=== PATIENT | male | born 1930 | race Caucasian/White ===

== ENCOUNTER 2018-05-22 19:37 | Emergency (ER) | payer MEDICARE ==
[2018-05-22] MEDS ORDERED: Sodium Chloride 0.9% 1000 ML 1,000 ML IV STA ×2 (20:08→23:18)
--- NOTE | 2018-05-22 20:08 | ERPHSYRPT ---
- History of Present Illness Time Seen by Provider: 05/22/18 20:04 Source: patient, family Exam Limitations: no limitations Patient Subjective Stated Complaint: pt is alert and oriented. pt is ambulatory. pt has hx of spastic esophagus. pt states that he has vomited 15-20 times since this AM. pt bowel sounds present. pt lung sounds clear. no stridor noted. pt says he "choked on a pork chop" last night. pt states that when he eats or drinks it feels like it gets stuck and then 10-15 minutes later vomits. Triage Nursing Assessment: see above Physician History: The patient is a 88-year-old male with family complaining that while at a wedding last evening about 24 hours ago, he swallowed part of his cupcake and since then has not been able to swallow anything by mouth. He has tried for nearly 24 hours to drink water but regurgitates. He tried toast today was unable to eat it. He's also tried coffee. He has not urinated much today. He is not lightheaded. He is not able to swallow his saliva. He denies shortness of breath. Many years ago he was told he had a spastic esophagus. His past medical history is significant for CAD, cardiac stents, high cholesterol, peripheral neuropathy, and diabetes. Timing/Duration: yesterday, hour(s) (24), sudden Severity: moderate Modifying Factors: Improves With: nothing Associated Symptoms: vomiting Allergies/Adverse Reactions: No Known Drug Allergies Allergy (Unverified 05/03/15 08:12) Home Medications: Clopidogrel Bisulfate 75 mg [PLAVIX 75 MG Tablet] 75 mg PO DAILY 05/03/15 [History] Aspirin EC 81 mg [Ecotrin 81 mg] 81 mg PO HS 05/22/18 [History] Cilostazol 50 mg PO BID 05/22/18 [History] Gabapentin [Neurontin] 600 mg PO Q6H PRN PRN 05/22/18 [History] Glimepiride 1 mg PO DAILY 05/22/18 [History] Hydrocodone Bit/Acetaminophen [Magazine 10-325 Tablet] 1 tab PO Q6H PRN PRN [History] Pravastatin Sodium 10 mg PO HS 05/22/18 [History] Hx Tetanus, Diphtheria Vaccination/Date Given: Yes Hx Influenza Vaccination/Date Given: Yes Hx Pneumococcal Vaccination/Date Given: Yes Immunizations Up to Date: Yes - Review of Systems Constitutional: No Fever, No Chills Eyes: No Symptoms Ears, Nose, & Throat: No Symptoms Respiratory: No Cough, No Dyspnea Cardiac: No Chest Pain, No Edema, No Syncope Abdominal/Gastrointestinal: Vomiting (regurgitation) Genitourinary Symptoms: No Dysuria Musculoskeletal: No Back Pain, No Neck Pain Skin: No Rash Neurological: No Dizziness, No Focal Weakness, No Sensory Changes Psychological: No Symptoms Endocrine: No Symptoms Hematologic/Lymphatic: No Symptoms Immunological/Allergic: No Symptoms All Other Systems: Reviewed and Negative - Past Medical History Pertinent Past Medical History: Yes Neurological History: Peripheral Neuropathy ENT History: No Pertinent History Cardiac History: Congenital Heart Disease, High Cholesterol Respiratory History: No Pertinent History Endocrine Medical History: Diabetes Type II Musculoskeletal History: No Pertinent History GI Medical History: Esophageal Disorder, Hernia History: No Pertinent History Psycho-Social History: No Pertinent History Male Reproductive Disorders: No Pertinent History Other Medical History: spastic colon. - Past Surgical History Past Surgical History: Yes Neuro Surgical History: No Pertinent History Cardiac: Cardiac Catheterization, Cardiac Stent Respiratory: No Pertinent History Gastrointestinal: Cholecystectomy Genitourinary: No Pertinent History Musculoskeletal: No Pertinent History Male Surgical History: Vasectomy Other Surgical History: tonsillectomy - Social History Smoking Status: Light tobacco smoker Exposure to second hand smoke: No Drug Use: none - Nursing Vital Signs Nursing Vital Signs: Initial Vital Signs Temperature 98.6 F 05/22/18 19:38 Pulse Rate 87 05/22/18 19:38 Respiratory Rate 18 05/22/18 19:38 Blood Pressure 149/76 05/22/18 19:38 O2 Sat by Pulse Oximetry 96 05/22/18 19:38 Pain Scale Pain Intensity 0 - Physical Exam General Appearance: no apparent distress, alert Eye Exam: PERRL/EOMI, eyes nml inspection Ears, Nose, Throat Exam: normal ENT inspection, TMs normal, pharynx normal, moist mucous membranes Neck Exam: normal inspection, non-tender, supple, full range of motion Respiratory Exam: normal breath sounds, lungs clear, No respiratory distress Cardiovascular Exam: regular rate/rhythm, normal heart sounds, normal peripheral pulses Gastrointestinal/Abdomen Exam: soft, normal bowel sounds, No tenderness, No mass Rectal Exam: not done Back Exam: normal inspection, normal range of motion, No CVA tenderness, No vertebral tenderness Extremity Exam: normal inspection, normal range of motion, pelvis stable Neurologic Exam: alert, oriented x 3, cooperative, normal mood/affect, nml cerebellar function, nml station & gait, sensation nml, No motor deficits Skin Exam: normal color, warm, dry, No rash Lymphatic Exam: No adenopathy SpO2 Interpretation: normal SpO2: 96 Oxygen Delivery: Room Air Ordered Tests: Active Orders 24 hr Category Date Time Status IV Insertion STAT Care 05/22/18 20:08 Active BMP Stat Lab 05/22/18 20:10 Completed CBC W DIFF Stat Lab 05/22/18 20:10 Completed Lactic Acid Stat Lab 05/22/18 20:08 Completed Medication Summary Discontinued Medications Generic Name Dose Route Start Last Admin Trade Name Freq PRN Reason Stop Dose Admin Glucagon 1 mg 05/22/18 20:10 05/22/18 20:16 Glucagen 1 Mg IV 05/22/18 20:11 1 mg STAT ONE Administration Glucagon Confirm 05/22/18 20:14 Glucagen 1 Mg Administered 05/22/18 20:15 Dose 1 mg .ROUTE .STK-MED ONE Glucagon 1 mg 05/22/18 21:09 05/22/18 21:27 Glucagen 1 Mg IV 05/22/18 21:10 1 mg STAT ONE Administration Sodium Chloride 1,000 mls @ 999 mls/hr 05/22/18 20:08 05/22/18 20:16 Sodium Chloride 0.9% 1000 Ml IV 05/22/18 21:08 999 mls/hr .Q1H1M STA Administration Sodium Chloride Confirm 05/22/18 20:15 Sodium Chloride 0.9% 1000 Ml Administered 05/22/18 20:16 Dose 1,000 mls @ ud .ROUTE .STK-MED ONE Lab/Rad Data: Laboratory Result Diagrams 05/22/18 20:10 05/22/18 20:10 Laboratory Results 05/22/18 05/22/18 05/22/18 Range/Units 20:10 20:10 20:08 WBC 11.1 H (4.0-10.5) K/mm3 RBC 5.23 (4.1-5.6) M/mm3 Hgb 17.2 (12.5-18.0) gm/dl Hct 50.6 H (42-50) % MCV 96.7 (78-100) fl MCH 32.9 H (26-32) pg MCHC 34.0 (32-36) g/dl RDW 14.1 H (11.5-14.0) % Plt Count 159 (150-450) K/mm3 MPV 11.9 H (6-9.5) fl Gran % 83.5 H (36.0-66.0) % Eos # (Auto) 0.01 (0-0.5) Absolute Lymphs (auto) 0.96 L (1.0-4.6) Absolute Monos (auto) 0.86 (0.0-1.3) Lymphocytes % 8.6 L (24.0-44.0) % Monocytes % 7.7 (0.0-12.0) % Eosinophils % 0.1 (0.00-5.0) % Basophils % 0.1 (0.0-0.4) % Absolute Granulocytes 9.29 H (1.4-6.9) Basophils # 0.01 (0-0.4) Sodium 145 (137-145) mmol/L Potassium 3.6 (3.5-5.1) mmol/L Chloride 107 (98-107) mmol/L Carbon Dioxide 26 (22-30) mmol/L Anion Gap 15.1 H (5-15) MEQ/L BUN 20 (9-20) mg/dL Creatinine 0.87 (0.66-1.25) mg/dL Estimated GFR > 60.0 ML/MIN Glucose 112 H (74-106) mg/dL Lactic Acid 1.2 (0.4-2.0) Calcium 9.9 (8.4-10.2) mg/dL - Progress Progress: unchanged Progress Note: 05/22/18 21:10 After glucagon 1 mg IV, pt is not able to pass water orally. 05/22/18 22:47 After second glucagon 1 mg IV, pt still not able to pass water orally. - Departure Time of Disposition: 22:58 Departure Disposition: Transfer (Transfer to [facility] per Dr Dahl) Clinical Impression: Esophageal obstruction due to food impaction Condition: Stable Critical Care Time: No Referrals: ALEC REINA MD [Primary Care Provider] -
[2018-05-22] MEDS ORDERED: GlucaGen 1 MG IV ONE ×2 (20:10→21:09)
[2018-05-22] MEDS ORDERED: GlucaGen 1 MG ONE (20:14)
[2018-05-22] MEDS ORDERED: Sodium Chloride 0.9% 1000 ML 1,000 ML ONE ×2 (20:15→23:14)
[2018-05-22 20:20] LABS: BASOPHIL % 0.1 % (0.0-0.4); Basophil (Absolute #) 0.01 (0-0.4); Eosinophil % 0.1 % (0.00-5.0); Eosinophil (Absolute #) 0.01 (0-0.5); Granulocyte Absolute (ANC) 9.29 (1.4-6.9); Granulocytes % 83.5 % (36.0-66.0); Hematocrit 50.6 % (42-50); Hemoglobin 17.2 gm/dl (12.5-18.0); Lymphocyte (Absolute #) 0.96 (1.0-4.6); Lymphocytes % 8.6 % (24.0-44.0); Mean Cell Volume 96.7 fl (78-100); Mean Corpuscular Hemoglobin 32.9 pg (26-32); Mean Platelet Volume 11.9 fl (6-9.5); Monocyte (Absolute #) 0.86 (0.0-1.3); Monocytes % 7.7 % (0.0-12.0); Platelet Count 159 K/mm3 (150-450); Red Blood Count 5.23 M/mm3 (4.1-5.6); Red Cell Distribution Width 14.1 % (11.5-14.0); White Blood Count 11.1 K/mm3 (4.0-10.5)
[2018-05-22 20:39] LABS: ANION GAP 15.1 MEQ/L (5-15); BLOOD UREA NITROGEN 20 mg/dL (9-20); CHLORIDE 107 mmol/L (98-107); Calcium 9.9 mg/dL (8.4-10.2); Carbon Dioxide 26 mmol/L (22-30); Creatinine 1 0.87 mg/dL (0.66-1.25); Glucose 112 mg/dL (74-106); Potassium 3.6 mmol/L (3.5-5.1); SODIUM 145 mmol/L (137-145)
[2018-05-22 22:14] VITALS: O2SAT 96
[2018-05-22 22:48] VITALS: BP 124/63; PULSE 71
== END 2018-05-22 23:38 | disposition short-term general hospital (02) ==
LOC: ED 19:37
DX: T18.120A Food in esophagus causing compression of trachea, initial encounter (principal); Z79.01 Long term (current) use of anticoagulants; Z79.899 Other long term (current) drug therapy; Z79.82 Long term (current) use of aspirin; E11.9 Type 2 diabetes mellitus without complications; Z79.84 Long term (current) use of oral hypoglycemic drugs
CPT/HCPCS: 36000; 36415; 80048; 83605; 85025; 96360; 96374; 96376; 99285; J1610

== ENCOUNTER 2019-08-09 10:00 | Emergency (ER) | payer MEDICARE ==
--- NOTE | 2019-08-09 10:16 | ERPHSYRPT ---
- History of Present Illness Time Seen by Provider: 08/09/19 10:15 Historian: patient Exam Limitations: no limitations Physician History: the patient is an 89-year-old male who presents with a chief complaint abdominal pain. Onset reportedly sent over the past couple days and progressively got worse this morning. The pain is primarily located to the right carotid and radiates to the right lower quadrant. The pain is now constant and currently mild in severity. He reportedly took a "Vicodin" this morning with relief in his pain. He states that he feels a bulge in his groin that is new. he reports a history of a left hernia repair but denies history of a right inguinal hernia. He denies nausea, vomiting, blood in stools, constipation, and lack of appetite. The patient denies fever, chills, testicular pain and dysuria initial symptoms to include UTI. The patient was offered pain medication and refused. Timing/Duration: day(s) (2) Abdominal Pain Onset Location: other (Right groin) Pain Radiation: RLQ Allergies/Adverse Reactions: No Known Drug Allergies Allergy (Verified 08/09/19 10:18) Home Medications: Clopidogrel Bisulfate 75 mg [PLAVIX 75 MG Tablet] 75 mg PO DAILY 05/03/15 [History] Aspirin EC 81 mg [Ecotrin 81 mg] 81 mg PO HS 05/22/18 [History] Cilostazol 50 mg PO BID 05/22/18 [History] Gabapentin [Neurontin] 600 mg PO Q6H PRN PRN 05/22/18 [History] Glimepiride 1 mg PO DAILY 05/22/18 [History] Hydrocodone Bit/Acetaminophen [Stebbins 10-325 Tablet] 1 tab PO Q6H PRN PRN [History] Pravastatin Sodium 10 mg PO HS 05/22/18 [History] Hx Tetanus, Diphtheria Vaccination/Date Given: Yes Hx Influenza Vaccination/Date Given: Yes Hx Pneumococcal Vaccination/Date Given: Yes - Review of Systems Constitutional: No Symptoms Eyes: No Symptoms Ears, Nose, & Throat: No Symptoms Abdominal/Gastrointestinal: Abdominal Pain, No Nausea, No Vomiting, No Diarrhea Musculoskeletal: No Symptoms Skin: No Symptoms Neurological: No Symptoms Psychological: No Symptoms - Past Medical History Pertinent Past Medical History: Yes Neurological History: Peripheral Neuropathy ENT History: No Pertinent History Cardiac History: Congenital Heart Disease, High Cholesterol Respiratory History: No Pertinent History Endocrine Medical History: Diabetes Type II Musculoskeletal History: No Pertinent History GI Medical History: Esophageal Disorder, Hernia History: No Pertinent History Psycho-Social History: No Pertinent History Male Reproductive Disorders: No Pertinent History Other Medical History: spastic colon. - Past Surgical History Past Surgical History: Yes Neuro Surgical History: No Pertinent History Cardiac: Cardiac Catheterization, Cardiac Stent Respiratory: No Pertinent History Gastrointestinal: Cholecystectomy Genitourinary: No Pertinent History Musculoskeletal: No Pertinent History Male Surgical History: Vasectomy Other Surgical History: tonsillectomy - Social History Smoking Status: Light tobacco smoker Exposure to second hand smoke: No Drug Use: none - Nursing Vital Signs Nursing Vital Signs: Initial Vital Signs Temperature 97.5 F 08/09/19 10:09 Pulse Rate 79 08/09/19 10:09 Respiratory Rate 18 08/09/19 10:09 Blood Pressure 145/74 08/09/19 10:09 O2 Sat by Pulse Oximetry 95 08/09/19 10:09 Pain Scale Pain Intensity 3 - Physical Exam General Appearance: no apparent distress, alert Ears, Nose, Throat Exam: No pharyngeal erythema, No tonsillar exudate Neck Exam: normal inspection Respiratory Exam: normal breath sounds, airway intact, No chest tenderness, No lungs clear, No respiratory distress Cardiovascular Exam: regular rate/rhythm, normal heart sounds Gastrointestinal/Abdomen Exam: soft, normal bowel sounds, tenderness, mass, hernia, other (Palpable mass noted to the right groin consistent with possibly a femoral hernia), No rebound Male Genitalia Exam: normal genitalia, No testicular tenderness, No testicular mass, No penile lesion, No penile discharge Rectal Exam: deferred Back Exam: normal inspection Extremity Exam: normal inspection, No joint swelling, No tenderness Neurologic Exam: alert, oriented x 3, cooperative Skin Exam: normal color, warm, dry, No rash, No embolic lesions O2 Delivery: Room Air - Course Nursing assessment & vital signs reviewed: Yes - CT Exams Abdomen/Pelvis CT Interpretation: Other (Right inguinal hernia with no evidence of obstruction or stranding. Otherwise no acute findings on exam) Ordered Tests: Active Orders 24 hr Category Date Time Status IV Insertion STAT Care 08/09/19 10:24 Active ABDOMEN AND PELVIS W CONTRAST [CT] Stat Exams 08/09/19 10:26 Completed CBC W DIFF Stat Lab 08/09/19 10:24 Completed CMP Stat Lab 08/09/19 10:24 Completed CULTURE,URINE Stat Lab 08/09/19 12:20 Results LIPASE Stat Lab 08/09/19 10:24 Completed Lactic Acid Stat Lab 08/09/19 11:18 Completed UA W/RFX UR CULTURE Stat Lab 08/09/19 12:20 Completed Medication Summary Discontinued Medications Generic Name Dose Route Start Last Admin Trade Name Peter PRN Reason Stop Dose Admin Albuterol Sulfate Confirm 08/09/19 11:39 Proventil 2.5 Mg/3 Ml Neb Administered 08/09/19 11:40 Dose 2.5 mg IH .STK-MED ONE Lab/Rad Data: Laboratory Result Diagrams 08/09/19 10:24 08/09/19 10:24 Laboratory Results 08/09/19 08/09/19 08/09/19 Range/Units 12:20 11:18 10:24 WBC (4.0-10.5) K/mm3 RBC (4.1-5.6) M/mm3 Hgb (12.5-18.0) gm/dl Hct (42-50) % MCV (78-100) fl MCH (26-32) pg MCHC (32-36) g/dl RDW (11.5-14.0) % Plt Count (150-450) K/mm3 MPV (6-9.5) fl Gran % (36.0-66.0) % Eos # (Auto) (0-0.5) Absolute Lymphs (auto) (1.0-4.6) Absolute Monos (auto) (0.0-1.3) Lymphocytes % (24.0-44.0) % Monocytes % (0.0-12.0) % Eosinophils % (0.00-5.0) % Basophils % (0.0-0.4) % Absolute Granulocytes (1.4-6.9) Basophils # (0-0.4) Sodium 140 (137-145) mmol/L Potassium 4.0 (3.5-5.1) mmol/L Chloride 107 (98-107) mmol/L Carbon Dioxide 26 (22-30) mmol/L Anion Gap 11.0 (5-15) MEQ/L BUN 13 (9-20) mg/dL Creatinine 0.85 (0.66-1.25) mg/dL Estimated GFR > 60.0 ML/MIN Glucose 98 (74-106) mg/dL Lactic Acid 1.4 (0.4-2.0) Calcium 9.2 (8.4-10.2) mg/dL Total Bilirubin 0.50 (0.2-1.3) mg/dL AST 23 (17-59) U/L ALT 14 (0-50) U/L Alkaline Phosphatase 82 (38-126) U/L Serum Total Protein 7.4 (6.3-8.2) g/dL Albumin 4.0 (3.5-5.0) g/dL Lipase 30 (23-300) U/L Urine Color YELLOW (YELLOW) Urine Appearance CLEAR (CLEAR) Urine pH 6.0 (5-6) Ur Specific [place] 1.026 (1.005-1.025) Urine Protein NEGATIVE (Negative) Urine Ketones NEGATIVE (NEGATIVE) Urine Blood SMALL (0-5) Philip/ul Urine Nitrite NEGATIVE (NEGATIVE) Urine Bilirubin NEGATIVE (NEGATIVE) Urine Urobilinogen NEGATIVE (0-1) mg/dL Ur Leukocyte Esterase TRACE (NEGATIVE) Urine WBC (Auto) 16-25 (0-5) /HPF Urine RBC (Auto) NONE (0-2) /HPF U Epithel Cells (Auto) NONE (FEW) /HPF Urine Bacteria (Auto) NONE SEEN (NEGATIVE) /HPF Urine Mucus (Auto) SLIGHT (NEGATIVE) /HPF Urine Culture Reflexed YES (NO) Urine Glucose NEGATIVE (NEGATIVE) mg/dL 08/09/19 Range/Units 10:24 WBC 7.4 (4.0-10.5) K/mm3 RBC 4.46 (4.1-5.6) M/mm3 Hgb 14.3 (12.5-18.0) gm/dl Hct 43.9 (42-50) % MCV 98.4 (78-100) fl MCH 32.1 H (26-32) pg MCHC 32.6 (32-36) g/dl RDW 13.4 (11.5-14.0) % Plt Count 173 (150-450) K/mm3 MPV 11.7 H (6-9.5) fl Gran % 68.0 H (36.0-66.0) % Eos # (Auto) 0.11 (0-0.5) Absolute Lymphs (auto) 1.52 (1.0-4.6) Absolute Monos (auto) 0.73 (0.0-1.3) Lymphocytes % 20.4 L (24.0-44.0) % Monocytes % 9.8 (0.0-12.0) % Eosinophils % 1.5 (0.00-5.0) % Basophils % 0.3 (0.0-0.4) % Absolute Granulocytes 5.06 (1.4-6.9) Basophils # 0.02 (0-0.4) Sodium (137-145) mmol/L Potassium (3.5-5.1) mmol/L Chloride (98-107) mmol/L Carbon Dioxide (22-30) mmol/L Anion Gap (5-15) MEQ/L BUN (9-20) mg/dL Creatinine (0.66-1.25) mg/dL Estimated GFR ML/MIN Glucose (74-106) mg/dL Lactic Acid (0.4-2.0) Calcium (8.4-10.2) mg/dL Total Bilirubin (0.2-1.3) mg/dL AST (17-59) U/L ALT (0-50) U/L Alkaline Phosphatase (38-126) U/L Serum Total Protein (6.3-8.2) g/dL Albumin (3.5-5.0) g/dL Lipase (23-300) U/L Urine Color (YELLOW) Urine Appearance (CLEAR) Urine pH (5-6) Ur Specific [place] (1.005-1.025) Urine Protein (Negative) Urine Ketones (NEGATIVE) Urine Blood (0-5) Philip/ul Urine Nitrite (NEGATIVE) Urine Bilirubin (NEGATIVE) Urine Urobilinogen (0-1) mg/dL Ur Leukocyte Esterase (NEGATIVE) Urine WBC (Auto) (0-5) /HPF Urine RBC (Auto) (0-2) /HPF U Epithel Cells (Auto) (FEW) /HPF Urine Bacteria (Auto) (NEGATIVE) /HPF Urine Mucus (Auto) (NEGATIVE) /HPF Urine Culture Reflexed (NO) Urine Glucose (NEGATIVE) mg/dL - Progress Progress: improved Counseled pt/family regarding: lab results, diagnosis, need for follow-up, rad results - Departure Departure Disposition: Home Clinical Impression: Right inguinal hernia Condition: Stable Critical Care Time: No Referrals: LUKAS NARAYANAN [ACTIVE STAFF] - Instructions: Groin Hernia (DC) Additional Instructions: Please call and schedule an appointment with Dr. Narayanan for further evaluation and management of your right inguinal hernia. Plan of Treatment: Nontoxic in appearance. No pain-free. Patient was ultimately discharge with instructions to f/u with his general surgeon for OP re-evaluation and operative repair. ED return precautions for strangulated hernia given. The patient agreed with and verbally understood the discharge plan.
[2019-08-09 11:00] LABS: Absolute Neutrophil Ct (ANC) 5.06 (1.4-6.9); BASOPHIL % 0.3 % (0.0-0.4); Basophil (Absolute #) 0.02 (0-0.4); Eosinophil % 1.5 % (0.00-5.0); Eosinophil (Absolute #) 0.11 (0-0.5); Hematocrit 43.9 % (42-50); Hemoglobin 14.3 gm/dl (12.5-18.0); Lymphocyte (Absolute #) 1.52 (1.0-4.6); Lymphocytes % 20.4 % (24.0-44.0); Mean Cell Volume 98.4 fl (78-100); Mean Corpuscular Hemoglobin 32.1 pg (26-32); Mean Corpuscular Hgb Concent. 32.6 g/dl (32-36); Mean Platelet Volume 11.7 fl (6-9.5); Monocyte (Absolute #) 0.73 (0.0-1.3); Monocytes % 9.8 % (0.0-12.0); Platelet Count 173 K/mm3 (150-450); Red Blood Count 4.46 M/mm3 (4.1-5.6); Red Cell Distribution Width 13.4 % (11.5-14.0); White Blood Count 7.4 K/mm3 (4.0-10.5)
[2019-08-09 11:03] LABS: ALKALINE PHOSPHATASE 82 U/L (38-126); BLOOD UREA NITROGEN 13 mg/dL (9-20); CHLORIDE 107 mmol/L (98-107); Calcium 9.2 mg/dL (8.4-10.2); Carbon Dioxide 26 mmol/L (22-30); Creatinine 1 0.85 mg/dL (0.66-1.25); Glucose 98 mg/dL (74-106); LIPASE 30 U/L (23-300); SGOT/AST 23 U/L (17-59); SGPT/ALT 14 U/L (0-50); SODIUM 140 mmol/L (137-145); Total Protein 7.4 g/dL (6.3-8.2)
[2019-08-09] MEDS ORDERED: PROVENTIL 2.5 MG/3 ML NEB IH ONE (11:39)
[2019-08-09 12:13] LABS: Appearance CLEAR (CLEAR); Bilirubin NEGATIVE (NEGATIVE); Blood SMALL Ery/ul (0-5); Glucose NEGATIVE (NEGATIVE); Ketones NEGATIVE (NEGATIVE); Leukocyte Esterase TRACE (NEGATIVE); Mucus SLIGHT /HPF (NEGATIVE); Nitrite NEGATIVE (NEGATIVE); Protein,Urine Dip NEGATIVE (Negative); Specific Gravity 1.026 (1.005-1.025); Urobilinogen NEGATIVE mg/dL (0-1)
[2019-08-09 12:31] VITALS: O2SAT 95
[2019-08-09 12:49] LABS: Bacteria NONE SEEN /HPF (NEGATIVE)
[2019-08-09 12:57] VITALS: BP 140/71; PULSE 68
--- NOTE | 2019-08-09 19:38 | XRAY ---
Indication: Right lower quadrant pain. Multiple contiguous axial images obtained through the abdomen and pelvis using 80 cc Isovue-370 contrast only. Comparison: October 12, 2012. Lung bases demonstrates mild bibasilar dependent atelectasis and minimal fibrosis/scarring. No infiltrate or effusion. Heart is not enlarged. Noncontrasted stomach and bowel loops appear nonobstructed. Normal appendix. Again mild diffuse scattered colonic fecal debris throughout including rectum. Stable scattered colonic diverticulosis without diverticulitis. New small right inguinal hernia with herniated knuckle of small bowel without obstruction/incarceration. Again previous cholecystectomy. No free fluid/air. Both kidneys enhance and excrete with stable bilateral renal cysts. Remaining liver, pancreas, spleen, adrenal glands, kidneys, ureters, and bladder appear unremarkable. Again moderate scattered aortoiliac calcifications. No AAA or pathologic retroperitoneal lymphadenopathy. Osseous structures again demonstrates osteopenia, mild degenerative changes throughout the spine, and S1 bone island. Impression: 1. New right inguinal hernia with herniated small bowel loop without complications. 2. Again diffuse fecal stasis, colonic diverticulosis, and bilateral renal cysts. Comment: Preliminary interpretation was made by [facility]. No critical discrepancy.
== END 2019-08-09 13:28 | disposition home or self-care (01) ==
LOC: ED 10:00
DX: K40.90 Unilateral inguinal hernia, without obstruction or gangrene, not specified as recurrent (principal); E11.9 Type 2 diabetes mellitus without complications; E78.00 Pure hypercholesterolemia, unspecified; Z79.899 Other long term (current) drug therapy
CPT/HCPCS: 36000; 36415; 74177; 80053; 81001; 83605; 83690; 85025; 87086; 99284; J7609; A9270-GY

== ENCOUNTER 2020-01-22 14:01 | Observation (INO) | payer MEDICARE ==
[2020-01-22] MEDS ORDERED: Hydromorphone 1 mg/ml Ampule IV ONE (15:14)
[2020-01-22] MEDS ORDERED: Hydromorphone 1 mg/ml Ampule ONE (16:11)
[2020-01-22] MEDS ORDERED: Sodium Chloride 0.9% 1000 ML 1,000 ML ONE (16:12)
[2020-01-22] MEDS: Sodium Chloride 0.9% 1000 ML 1,000 ML IV SCH (16:15)
--- NOTE | 2020-01-22 16:47 | XRAY ---
Indication: Pain following fall. Comparison: None AP pelvis and 2 view left hip demonstrates mild osteopenia, moderate scattered vascular calcifications bilaterally, and partially visualized left mid SFA stent graft. No other bony, articular, or soft tissue abnormalities.
--- NOTE | 2020-01-22 18:42 | ERPHSYRPT ---
- History of Present Illness Time Seen by Provider: 01/22/20 15:00 Patient Subjective Stated Complaint: Left hip pain Triage Nursing Assessment: Patient brought back to ED via w/c and transferred to bed with assist of 1. Patient A+O X 3. Patient's skin pink, warm and dry. 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 Patient was unable to get up and was assisted up with help. No shortening or internal/external rotation. Patient states pain is worse when bearing weight. Timing/Duration: today Occured at: home Context: fall Quality: throbbing Hip Pain Location: hip (L) Severity of Pain-Max: severe Severity of Pain-Current: severe Modifying Factors: Improves With: movement, other (Unable to bear weight) Symptoms prior to fall: none Associated Symptoms: denies symptoms Allergies/Adverse Reactions: No Known Drug Allergies Allergy (Verified 01/22/20 14:43) Home Medications: Clopidogrel Bisulfate 75 mg [PLAVIX 75 MG Tablet] 75 mg PO DAILY 05/03/15 [History] Aspirin EC 81 mg [Ecotrin 81 mg] 81 mg PO HS 05/22/18 [History] Gabapentin [Neurontin] 600 mg PO QID 05/22/18 [History] Glimepiride 1 mg PO DAILY 05/22/18 [History] Hydrocodone Bit/Acetaminophen [[place] 10-325 Tablet] 1 tab PO Q6H PRN PRN [History] Pravastatin Sodium 20 mg PO HS 05/22/18 [History] cilostazoL [Cilostazol] 50 mg PO BID 05/22/18 [History] lisinopriL [Zestril] 1 tab PO DAILY 01/22/20 [History] Hx Tetanus, Diphtheria Vaccination/Date Given: Yes Hx Influenza Vaccination/Date Given: Yes Hx Pneumococcal Vaccination/Date Given: Yes Immunizations Up to Date: Yes Travel Risk - International Travel Have you traveled outside of the country in past 3 weeks: No - Coronavirus Screening Are you exhibiting any of the following symptoms?: No Close contact with a COVID-19 positive Pt in past 14-21 Days: No - Review of Systems Constitutional: No Fever, No Chills Eyes: No Symptoms Ears, Nose, & Throat: No Symptoms Respiratory: No Cough, No Dyspnea Cardiac: No Chest Pain, No Edema, No Syncope Abdominal/Gastrointestinal: No Abdominal Pain, No Nausea, No Vomiting, No Diarrhea Genitourinary Symptoms: No Dysuria Musculoskeletal: Joint Pain, No Back Pain, No Neck Pain Skin: No Rash Neurological: No Dizziness, No Focal Weakness, No Sensory Changes Psychological: No Symptoms Endocrine: No Symptoms All Other Systems: Reviewed and Negative - Past Medical History Pertinent Past Medical History: Yes Neurological History: Peripheral Neuropathy ENT History: No Pertinent History Cardiac History: Congenital Heart Disease, High Cholesterol Respiratory History: No Pertinent History Endocrine Medical History: Diabetes Type II Musculoskeletal History: No Pertinent History GI Medical History: Esophageal Disorder, Hernia History: No Pertinent History Psycho-Social History: No Pertinent History Male Reproductive Disorders: No Pertinent History Other Medical History: spastic colon. - Past Surgical History Past Surgical History: Yes Neuro Surgical History: No Pertinent History Cardiac: Cardiac Catheterization, Cardiac Stent Respiratory: No Pertinent History Gastrointestinal: Cholecystectomy Genitourinary: No Pertinent History Musculoskeletal: No Pertinent History Male Surgical History: Vasectomy Other Surgical History: tonsillectomy - Social History Smoking Status: Former smoker Exposure to second hand smoke: No Drug Use: none Patient Lives Alone: Yes - Nursing Vital Signs Nursing Vital Signs: Initial Vital Signs Temperature 97.8 F 01/22/20 14:44 Pulse Rate 69 01/22/20 14:44 Respiratory Rate 18 01/22/20 14:44 Blood Pressure 102/46 01/22/20 14:44 O2 Sat by Pulse Oximetry 92 L 01/22/20 14:44 Pain Scale Pain Intensity 8 - Physical Exam General Appearance: moderate distress, alert Eye Exam: PERRL/EOMI Ears, Nose, Throat Exam: normal ENT inspection, moist mucous membranes Neck Exam: normal inspection, non-tender, supple Respiratory Exam: normal breath sounds, lungs clear, No chest tenderness, No respiratory distress Cardiovascular Exam: regular rate/rhythm, No edema Gastrointestinal Exam: soft, No tenderness, No distention, No guarding Back Exam: normal inspection, normal range of motion, No vertebral tenderness Extremity Exam: other (Tender over the lateral aspect of the left hip.) Neurologic Exam: alert, oriented x 3, cooperative, supervisor statement clerks II-XII nml as tested, sensation nml, No motor deficits Skin Exam: normal color, warm, dry, No rash SpO2: 92 - Course Nursing assessment & vital signs reviewed: Yes - Radiology Exams Hip X-ray Interpretation: Negative - CT Exams Left Pelvis CT Interpretation: Other (The scan shows a minimally displaced small fracture of the left greater trochanter) Ordered Tests: Active Orders 24 hr Category Date Time Status HIP UNI (2V) INCL PEL IF DONE Stat Exams 01/22/20 15:13 Completed PELVIS WITHOUT CONTRAST [CT] Stat Exams 01/22/20 17:13 Taken Medication Summary Generic Name Dose Route Start Last Admin Trade Name Freq PRN Reason Stop Dose Admin Sodium Chloride 1,000 mls @ 100 mls/hr 01/22/20 15:15 01/22/20 16:15 Sodium Chloride 0.9% 1000 Ml IV 02/21/20 15:14 100 mls/hr .Q10H AIDEN Administration Discontinued Medications Generic Name Dose Route Start Last Admin Trade Name Freq PRN Reason Stop Dose Admin Hydromorphone HCl 0.5 mg 01/22/20 15:14 01/22/20 16:15 Hydromorphone 1 Mg/Ml Ampule IV 01/22/20 15:15 0.5 mg STAT ONE Administration Hydromorphone HCl Confirm 01/22/20 16:11 Hydromorphone 1 Mg/Ml Ampule Administered 01/22/20 16:12 Dose 1 mg .ROUTE .STK-MED ONE - Progress Progress: improved - Departure Departure Disposition: Observation Clinical Impression: Fracture of greater trochanter of left femur Condition: Stable Critical Care Time: No Referrals: ALEC REINA MD [Primary Care Provider] - Instructions: Hip Fracture (DC)
[2020-01-22] MEDS ORDERED: DILAUDID 2 MG INJECTION ONE (21:24)
[2020-01-22] MEDS: Hydromorphone 1 mg/ml Ampule IV PRN (21:26)
[2020-01-22] MEDS ORDERED: Pletal 100 MG ONE (22:50)
[2020-01-22] MEDS ORDERED: ECOTRIN 81 MG PO ONE (22:50)
[2020-01-22] MEDS ORDERED: Pletal 100 MG PO SCH (23:00)
[2020-01-22] MEDS ORDERED: ECOTRIN 81 MG PO SCH (23:00)
[2020-01-22] MEDS: ZOCOR 20MG PO SCH (23:03)
[2020-01-22] MEDS: Miralax Powder 17GM PACKET PO SCH (23:03)
[2020-01-22] MEDS: NEURONTIN 300 MG PO SCH (23:05)
[2020-01-23] MEDS ORDERED: DILAUDID 2 MG INJECTION ONE (02:19)
[2020-01-23] MEDS: Hydromorphone 1 mg/ml Ampule IV PRN (02:23)
[2020-01-23] MEDS: Sodium Chloride 0.9% 1000 ML 1,000 ML IV SCH (02:23)
[2020-01-23 06:12] LABS: ALBUMIN 3.8 g/dL (3.5-5.0); ALKALINE PHOSPHATASE 114 U/L (38-126); ANION GAP 9.9 MEQ/L (5-15); BLOOD UREA NITROGEN 16 mg/dL (9-20); CHLORIDE 107 mmol/L (98-107); Calcium 8.2 mg/dL (8.4-10.2); Carbon Dioxide 26 mmol/L (22-30); Creatinine 1 0.89 mg/dL (0.66-1.25); Glucose 102 mg/dL (74-106); Potassium 4.4 mmol/L (3.5-5.1); SGOT/AST 131 U/L (17-59); SGPT/ALT 90 U/L (0-50); SODIUM 138 mmol/L (137-145); Total Protein 6.5 g/dL (6.3-8.2)
[2020-01-23] MEDS ORDERED: DILAUDID 2 MG INJECTION IV PRN (06:34)
[2020-01-23 07:59] LABS: Absolute Neutrophil Ct (ANC) 4.42 (1.4-6.9); BASOPHIL % 0.2 % (0.0-0.4); Basophil (Absolute #) 0.01 (0-0.4); Eosinophil % 3.1 % (0.00-5.0); Eosinophil (Absolute #) 0.19 (0-0.5); Hematocrit 43.2 % (42-50); Hemoglobin 13.8 gm/dl (12.5-18.0); Lymphocytes % 13.2 % (24.0-44.0); Mean Cell Volume 99.8 fl (78-100); Mean Corpuscular Hemoglobin 31.9 pg (26-32); Mean Corpuscular Hgb Concent. 31.9 g/dl (32-36); Mean Platelet Volume 11.9 fl (7.5-11.0); Monocyte (Absolute #) 0.65 (0.0-1.3); Monocytes % 10.7 % (0.0-12.0); Neutrophil % 72.8 % (36.0-66.0); Platelet Count 149 K/mm3 (150-450); Red Blood Count 4.33 M/mm3 (4.1-5.6); Red Cell Distribution Width 13.8 % (11.5-14.0); White Blood Count 6.1 K/mm3 (4.0-10.5)
[2020-01-23] MEDS: NEURONTIN 300 MG PO SCH ×4 (08:05→21:40)
--- NOTE | 2020-01-23 08:37 | XRAY ---
Indication: Left hip pain. No known injury. Multiple contiguous axial images obtained through the pelvis with special attention to the osseous structures. Comparison: CT abdomen/pelvis August 09, 2019. Stable osteopenia, lower lumbar degenerative spondylosis, mild bilateral degenerative arthropathy, and probable benign sclerotic lesions right acetabulum/S1. New small nondisplaced fracture left greater trochanter. No other acute fracture, dislocation, or suspicious bony lesions. Visualized noncontrasted soft tissues again demonstrates mild fecal stasis, sigmoid diverticulosis, and extensive vascular calcifications including bilateral iliac artery stent grafts. Impression: 1. New nondisplaced fracture left greater trochanter. 2. Stable nonacute incidental findings as detailed above.
[2020-01-23] MEDS: ECOTRIN 81 MG PO SCH (09:56)
[2020-01-23] MEDS ORDERED: Pletal 100 MG PO SCH (10:00)
[2020-01-23] MEDS: ENOXAPARIN SODIUM SQ SCH ×2 (14:47→21:39)
[2020-01-23] MEDS: PERCOCET TABLET 5/325MG PO PRN (15:05)
--- NOTE | 2020-01-23 16:46 | XRAY ---
Indication: Left hip pain following fall. Left greater trochanter fracture on recent CT. Axial and coronal MRI both hips performed using T1, T2, and STIR sequences. Additional T2 fat sat images obtained through the left hip. Comparison: None Both hips are intact without effusion, bony remodeling, or evidence for avascular necrosis. There is a grossly nondisplaced incomplete left intertrochanteric acute fracture. The fracture line extends superiorly to the greater trochanter where there is a small minimally displaced posterior avulsion type fracture fragment, site of the gluteus medius insertion. The adjacent left gluteus minimus and gluteus dulce muscles demonstrates T2 edema signal favoring acute strain injury with small surrounding fluid. No other acute fracture, suspicious bony lesions, or abnormal bone marrow signal. Remaining visualized soft tissues including visualized pelvic contents are unremarkable. Impression: Left intertrochanteric fracture extending to the greater trochanter with small posterior avulsion type fracture as detailed. Associated left gluteus minimus and gluteus dulce strain injury.
--- NOTE | 2020-01-23 17:55 | PCM.HP ---
History of Present Illness - Chief Complaint Chief Complaint: Fx Left Greater Trochanter History of Present Illness: is a 89 year old male pt of Dr. Cesar with hyperlipdemia, peipheral neuropathy, DM II, esophageal spasms, spastic colon, and CAD (with hx stents) who was admitted through ER with hip fracture. He was fixing a mower yesterday morning and was putting torque on a bar and it slipped, throwing him to the floor (landed on his buttocks). He had a lot of pain with weight bearing and it took 3 people to get him in the car. The initial XR was negative for fracutre, but the CT initial read was minimallly displaced fracture of the greater trochanter. Remy Draper NP, saw the pt and discussed with Dr. Nielson, who wanted an MRI ordered. MRI showed that the fracture was not complete so should be non surgical. - Review of Systems Musculoskeletal: Fall, Injury (L hip), Joint Swelling (R knee, chronic) All Other Systems: Reviewed and Negative Medications & Allergies Home Medications: Home Medication List Clopidogrel Bisulfate 75 mg [PLAVIX 75 MG Tablet] 75 mg PO DAILY 05/03/15 [History Confirmed 01/22/20] Aspirin EC 81 mg [Ecotrin 81 mg] 81 mg PO QAM 05/22/18 [History Confirmed 01/22/20] Gabapentin [Neurontin] 600 mg PO QID 05/22/18 [History Confirmed 01/22/20] Glimepiride 1 mg PO DAILY 05/22/18 [History Confirmed 01/22/20] Hydrocodone Bit/Acetaminophen [[place] 10-325 Tablet] 1 tab PO Q6H PRN PRN 05/22/18 [History Confirmed 01/22/20] Pravastatin Sodium 20 mg PO HS 05/22/18 [History Confirmed 01/22/20] Polyethylene Glycol 3350 17 gm [Miralax Powder 17GM PACKET] 17 gm PO QHS 01/22/20 [History Confirmed 01/22/20] lisinopriL [Zestril] 2.5 mg PO DAILY 01/22/20 [History Confirmed 01/22/20] Allergies/Adverse Reactions: Allergies Allergy/AdvReac Type Severity Reaction Status Date / Time No Known Drug Allergies Allergy Verified 01/22/20 14:43 - Past Medical History Past Medical History: Yes Neurological History: Peripheral Neuropathy ENT History: No Pertinent History Cardiac History: Congenital Heart Disease, High Cholesterol Respiratory History: No Pertinent History Endocrine Medical History: Diabetes Type II Musculoskelatal History: No Pertinent History GI Medical History: Esophageal Disorder, Hernia History: No Pertinent History Pyscho-Social History: No Pertinent History Male Reproductive Disorders: No Pertinent History Comment: spastic esophagus - Past Surgical History Past Surgical History: Yes Neuro Surgical History: No Pertinent History Cardiac History: Cardiac Catheterization, Cardiac Stent Respiratory Surgery: No Pertinent History GI Surgical History: Cholecystectomy Genitourinary Surgical Hx: No Pertinent History Musculskeletal Surgical Hx: No Pertinent History Male Surgical History: Vasectomy Other Surgical History: tonsillectomy - Social History Smoking Status: Former smoker Exposure to second hand smoke: No Alcohol: None Drug Use: none - Physical Exam Vital Signs: Vital Signs - 24 hr Temp Pulse Resp BP Pulse Ox 01/23/20 16:00 98.5 F 75 16 98/48 95 01/23/20 12:00 98.7 F 74 13 116/58 90 L 01/23/20 09:12 91 L 01/23/20 07:46 99.0 F 103 H 18 132/61 91 L 01/23/20 04:00 98.7 F 95 H 16 126/62 91 L 01/23/20 02:33 84 L 01/22/20 23:58 98.2 F 82 18 119/56 94 L 01/22/20 23:47 98.2 F 82 18 119/56 94 L 01/22/20 20:28 98.1 F 68 20 140/65 93 L 01/22/20 20:00 98.1 F 68 20 140/65 93 L 01/22/20 19:45 98.1 F 68 20 140/65 93 L 01/22/20 18:42 92 L General Appearance: no apparent distress, alert Neurologic Exam: oriented x 3, cooperative Eye Exam: eyes nml inspection Ears, Nose, Throat Exam: moist mucous membranes Neck Exam: normal inspection Respiratory Exam: normal breath sounds, lungs clear, No crackles/rales, No rhonchi, No wheezing Cardiovascular Exam: regular rate/rhythm, normal heart sounds, No murmur Gastrointestinal/Abdomen Exam: soft, normal bowel sounds, No tenderness, No distention, No mass, No guarding, No rebound Extremity Exam: other (RLE is slightly everted. over the L greater trochanter there is no crepitus and nttp.), No swelling, No tenderness Results - Labs Lab/Micro Results: Accuchecks Date 01/23/20 Time 07:30 Accucheck Value: 103 Lab Results-Last 24 Hours 01/23/20 01/23/20 01/23/20 Range/Units 04:30 07:13 07:50 WBC 6.1 (4.0-10.5) K/mm3 RBC 4.33 (4.1-5.6) M/mm3 Hgb 13.8 (12.5-18.0) gm/dl Hct 43.2 (42-50) % MCV 99.8 (78-100) fl MCH 31.9 (26-32) pg MCHC 31.9 L (32-36) g/dl RDW 13.8 (11.5-14.0) % Plt Count 149 L (150-450) K/mm3 MPV 11.9 H (7.5-11.0) fl Gran % 72.8 H (36.0-66.0) % Eos # (Auto) 0.19 (0-0.5) Absolute Lymphs (auto) 0.80 L (1.0-4.6) Absolute Monos (auto) 0.65 (0.0-1.3) Lymphocytes % 13.2 L (24.0-44.0) % Monocytes % 10.7 (0.0-12.0) % Eosinophils % 3.1 (0.00-5.0) % Basophils % 0.2 (0.0-0.4) % Absolute Granulocytes 4.42 (1.4-6.9) Basophils # 0.01 (0-0.4) Sodium 138 (137-145) mmol/L Potassium 4.4 (3.5-5.1) mmol/L Chloride 107 (98-107) mmol/L Carbon Dioxide 26 (22-30) mmol/L Anion Gap 9.9 (5-15) MEQ/L BUN 16 (9-20) mg/dL Creatinine 0.89 (0.66-1.25) mg/dL Estimated GFR > 60.0 ML/MIN Glucose 102 (74-106) mg/dL Hemoglobin A1c 5.79 (4.5-6.0) % Calcium 8.2 L (8.4-10.2) mg/dL Total Bilirubin 1.00 (0.2-1.3) mg/dL AST 131 H (17-59) U/L ALT 90 H (0-50) U/L Alkaline Phosphatase 114 (38-126) U/L Serum Total Protein 6.5 (6.3-8.2) g/dL Albumin 3.8 (3.5-5.0) g/dL Accuchecks Date 01/23/20 Time 07:30 Accucheck Value: 103 - Radiology Impressions Radiology Exams & Impressions: Radiology Procedures Category Date Time Status HIP UNI (2V) INCL PEL IF DONE Stat Exams 01/22/20 15:13 Completed MRI LOW EXT JOINT W/O CONTRAST [MRI] Stat Exams 01/23/20 14:32 Completed PELVIS WITHOUT CONTRAST [CT] Stat Exams 01/22/20 17:13 Completed - Other Procedures and Tests Respiratory Therapy 01/23/20 02:31 Oxygen Nasal Cannula 2 lpm Assessment/Plan (1) Fracture of greater trochanter of left femur Current Visit: Yes Status: Acute Qualifiers: Encounter type: initial encounter Fracture type: closed Fracture alignment: nondisplaced Qualified Code(s): S72.115A - Nondisplaced fracture of greater trochanter of left femur, initial encounter for closed fracture Assessment & Plan: Per Dr. Nielson, pt to stay for pain control, should not need surgery currently. Toe touch x 2 weeks. XR in 2 weeks (sooner if the pain worsens, as the break could certainly extend and become complete). Was getting dilaudid for pain, but seems to be mostly controlled on percocet. Will consult PT for tomorrow. 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
[2020-01-23] MEDS: Miralax Powder 17GM PACKET PO SCH (21:39)
[2020-01-23] MEDS: ZOCOR 20MG PO SCH (21:40)
[2020-01-24] MEDS: PERCOCET TABLET 5/325MG PO PRN ×2 (07:43→14:01)
--- NOTE | 2020-01-24 08:38 | XRAY ---
Indication: Hypoxia. Comparison: None Portable chest hyperinflated and clear. Heart is not enlarged. Scattered aortic calcifications and left subclavian artery stent graft. Bony thorax intact with mild osteopenia and degenerative changes. Impression: Nonacute hyperinflated chest with chronic features.
[2020-01-24] MEDS: ECOTRIN 81 MG PO SCH (09:15)
[2020-01-24] MEDS: NEURONTIN 300 MG PO SCH ×4 (09:16→21:23)
[2020-01-24] MEDS: PLAVIX 75 MG Tablet PO SCH (09:17)
[2020-01-24] MEDS ORDERED: CITROMA 296 ML PO PRN (09:52)
--- NOTE | 2020-01-24 09:52 | PCM.NOTE ---
Date and Time: 01/24/20 0950 Subjective Assessment: Pt is feeling good. Doing well with percocet po. However has not had a BM x 3d. - Review of Systems Constitutional: No Fever Abdominal/Gastrointestinal: No Vomiting Objective Exam General Appearance: no apparent distress, alert Neurologic Exam: oriented x 3, cooperative Skin Exam: normal color, warm, dry, No rash Eye Exam: eyes nml inspection Ears, Nose, Throat Exam: moist mucous membranes Respiratory Exam: normal breath sounds, lungs clear, No crackles/rales, No rhonchi, No wheezing Cardiovascular Exam: regular rate/rhythm, normal heart sounds, No murmur Gastrointestinal/Abdomen Exam: soft, normal bowel sounds, No tenderness, No distention, No mass, No guarding, No rebound Extremity Exam: normal inspection, No pedal edema, No swelling Back Exam: normal inspection, No rash OBJECTIVE DATA Vital Signs: Vital Signs - 24 hr Temp Pulse Resp BP Pulse Ox 01/24/20 09:11 96 01/24/20 07:24 98.8 F 86 16 146/85 95 01/24/20 04:00 99.0 F 72 18 117/57 96 01/24/20 00:00 98.7 F 78 19 118/58 97 01/23/20 20:00 98.7 F 74 18 110/56 96 01/23/20 19:25 92 L 01/23/20 19:20 89 L 01/23/20 16:00 98.5 F 75 16 98/48 95 01/23/20 12:00 98.7 F 74 13 116/58 90 L Pain Assessment - Last Documented Pain Intensity 8 Pain Scale Used 0-10 Pain Scale Intake and Output: Intake & Output 01/21/20 01/22/20 01/23/20 01/24/20 11:59 11:59 11:59 11:59 Intake Total 1841 2265 Output Total 900 2150 Balance 941 115 Weight 69.6 kg 70.1 kg Lab Results: Accuchecks Date 01/24/20 Time 07:30 Accucheck Value: 112 Radiology Exams: Radiology Procedures Category Date Time Status CHEST 1 VIEW (PORTABLE) Urgent Exams 01/24/20 07:36 Completed HIP UNI (2V) INCL PEL IF DONE Stat Exams 01/22/20 15:13 Completed MRI LOW EXT JOINT W/O CONTRAST [MRI] Stat Exams 01/23/20 14:32 Completed PELVIS WITHOUT CONTRAST [CT] Stat Exams 01/22/20 17:13 Completed Assessment/Plan (1) Fracture of greater trochanter of left femur Current Visit: Yes Status: Acute Qualifiers: Encounter type: initial encounter Fracture type: closed Fracture alignment: nondisplaced Qualified Code(s): S72.115A - Nondisplaced fracture of greater trochanter of left femur, initial encounter for closed fracture Assessment & Plan: To start PT today. Pt will need therapy for quite some time, and will need particular care and assistance to avoid a fall within the next few weeks, as this fracture could easily become complete/displaced and need surgical intervention. Therapy now, as swing bed or in LTCF, could quite possibly avoid the risks and costs of surgery. 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
[2020-01-24] MEDS: Colace 100 MG PO SCH ×2 (11:07→21:23)
[2020-01-24] MEDS: Amaryl 2 MG PO SCH (11:48)
[2020-01-24] MEDS: Miralax Powder 17GM PACKET PO SCH (21:22)
[2020-01-24] MEDS: ENOXAPARIN SODIUM SQ SCH (21:23)
[2020-01-24] MEDS: ZOCOR 20MG PO SCH (21:23)
[2020-01-24 22:26] LABS: Appearance CLEAR (CLEAR); Bacteria RARE /HPF (NEGATIVE); Bilirubin NEGATIVE (NEGATIVE); Blood MODERATE Ery/ul (0-5); Glucose NEGATIVE (NEGATIVE); Ketones NEGATIVE (NEGATIVE); Leukocyte Esterase NEGATIVE (NEGATIVE); Mucus SLIGHT /HPF (NEGATIVE); Nitrite NEGATIVE (NEGATIVE); Protein,Urine Dip NEGATIVE (Negative); Specific Gravity 1.012 (1.005-1.025); Urobilinogen 4 mg/dL (0-1)
[2020-01-25] MEDS: Colace 100 MG PO SCH ×2 (09:13→21:04)
[2020-01-25] MEDS: NEURONTIN 300 MG PO SCH ×4 (09:14→21:04)
[2020-01-25] MEDS: Amaryl 2 MG PO SCH (09:14)
[2020-01-25] MEDS: PLAVIX 75 MG Tablet PO SCH (09:14)
[2020-01-25] MEDS: ECOTRIN 81 MG PO SCH (09:14)
[2020-01-25] MEDS: PERCOCET TABLET 5/325MG PO PRN (09:21)
[2020-01-25] MEDS ORDERED: NON-FORMULARY ITEM (Glimepiride [Glimepiride] 1 MG) PO SCH (10:00)
--- NOTE | 2020-01-25 15:29 | PCM.NOTE ---
Date and Time: 01/25/20 1527 Subjective Assessment: Pt had a BM. Is feeling better. - Review of Systems Constitutional: No Fever Musculoskeletal: Injury Objective Exam General Appearance: no apparent distress, alert Neurologic Exam: oriented x 3, cooperative Skin Exam: normal color, warm, dry, No rash Ears, Nose, Throat Exam: moist mucous membranes Neck Exam: normal inspection Respiratory Exam: normal breath sounds, lungs clear, No crackles/rales, No rhonchi, No wheezing Cardiovascular Exam: regular rate/rhythm, normal heart sounds, No murmur Gastrointestinal/Abdomen Exam: soft, normal bowel sounds, No tenderness, No distention, No mass, No guarding, No rebound Extremity Exam: No pedal edema, No swelling OBJECTIVE DATA Vital Signs: Vital Signs - 24 hr Temp Pulse Resp BP Pulse Ox 01/25/20 11:21 98.3 F 73 16 130/61 92 L 01/25/20 07:45 97 01/25/20 07:09 98.2 F 91 H 18 101/60 91 L 01/25/20 03:51 98.6 F 95 H 16 128/59 98 01/24/20 23:41 98.8 F 79 18 123/56 90 L 01/24/20 20:07 93 L 01/24/20 19:48 98.1 F 64 18 113/56 90 L 01/24/20 16:00 98.3 F 70 18 100/58 92 L Pain Assessment - Last Documented Pain Intensity 3 Pain Scale Used 0-10 Pain Scale Intake and Output: Intake & Output 01/23/20 01/24/20 01/25/20 01/26/20 11:59 11:59 11:59 11:59 Intake Total 1841 2265 1640 360 Output Total 900 2150 3700 275 Balance 941 115 -2060 85 Weight 69.6 kg 70.1 kg 68.5 kg Lab Results: Accuchecks Accucheck Value: 100 Lab Results-Last 24 Hours 01/24/20 Range/Units 21:30 Urine Color YELLOW (YELLOW) Urine Appearance CLEAR (CLEAR) Urine pH 7.0 (5-6) Ur Specific [place] 1.012 (1.005-1.025) Urine Protein NEGATIVE (Negative) Urine Ketones NEGATIVE (NEGATIVE) Urine Blood MODERATE (0-5) Philip/ul Urine Nitrite NEGATIVE (NEGATIVE) Urine Bilirubin NEGATIVE (NEGATIVE) Urine Urobilinogen 4 (0-1) mg/dL Ur Leukocyte Esterase NEGATIVE (NEGATIVE) Urine WBC (Auto) 6-10 (0-5) /HPF Urine RBC (Auto) 16-25 (0-2) /HPF U Epithel Cells (Auto) NONE (FEW) /HPF Urine Bacteria (Auto) RARE (NEGATIVE) /HPF Urine Mucus (Auto) SLIGHT (NEGATIVE) /HPF Urine Culture Reflexed NO (NO) Urine Glucose NEGATIVE (NEGATIVE) mg/dL Radiology Exams: Radiology Procedures Category Date Time Status CHEST 1 VIEW (PORTABLE) Urgent Exams 01/24/20 07:36 Completed MRI LOW EXT JOINT W/O CONTRAST [MRI] Stat Exams 01/23/20 14:32 Completed Multi-Disciplinary Progress Notes: Multi-Disciplinary Progress Notes 01/25/20 11:30 Case Management Note by Elaine Zurita AWARADHA INSURANCE NOTIFICATION OF APPROVAL FOR SWING BED. PT/DAUGHTER HOPEFUL FOR SWING BED FOR P.T./O.T. PRIOR TO DC. DENIES ADDNL NEEDS AT PRESENT TIME. Initialized on 01/25/20 11:30 - END OF NOTE 01/25/20 10:07 Case Management Note by Alem Becerra WAITING FOR AUTHORIZATION FOR SWINGBED FOR REHAB Initialized on 01/25/20 10:07 - END OF NOTE Assessment/Plan (1) Fracture of greater trochanter of left femur Current Visit: Yes Status: Acute Qualifiers: Encounter type: initial encounter Fracture type: closed Fracture alignment: nondisplaced Qualified Code(s): S72.115A - Nondisplaced fracture of greater trochanter of left femur, initial encounter for closed fracture Assessment & Plan: non surgical at this point. Would benefit from rehab. Started PT. Code(s): S72.112A - DISP FX OF GREATER TROCHANTER OF LEFT FEMUR, INIT (2) Diabetes mellitus Current Visit: Yes Status: Chronic Qualifiers: Diabetes mellitus type: type 2 Diabetes mellitus [facility] insulin use: without director long term care use Diabetes mellitus complication status: with neurologic complications Diabetes mellitus complication detail: with polyneuropathy Qualified Code(s): E11.42 - Type 2 diabetes mellitus with diabetic polyneuropathy Code(s): E11.9 - TYPE 2 DIABETES MELLITUS WITHOUT COMPLICATIONS (3) Esophageal spasm Current Visit: Yes Status: Chronic Code(s): K22.4 - DYSKINESIA OF ESOPHAGUS (4) Peripheral neuropathy Current Visit: Yes Status: Chronic Qualifiers: Peripheral neuropathy type: polyneuropathy associated with underlying disease Qualified Code(s): G63 - Polyneuropathy in diseases classified elsewhere Code(s): G62.9 - POLYNEUROPATHY, UNSPECIFIED
[2020-01-25] MEDS: Miralax Powder 17GM PACKET PO SCH (21:04)
[2020-01-25] MEDS: ENOXAPARIN SODIUM SQ SCH (21:05)
[2020-01-25] MEDS: ZOCOR 20MG PO SCH (21:05)
[2020-01-26] MEDS: ECOTRIN 81 MG PO SCH (09:48)
[2020-01-26] MEDS: NEURONTIN 300 MG PO SCH ×2 (09:48→12:38)
[2020-01-26] MEDS: PLAVIX 75 MG Tablet PO SCH (09:48)
[2020-01-26] MEDS: Colace 100 MG PO SCH (09:48)
[2020-01-26] MEDS: Amaryl 2 MG PO SCH (09:48)
[2020-01-26 12:16] VITALS: BP 132/62; PULSE 81; O2SAT 93
--- NOTE | 2020-01-26 17:47 | PCM.DS ---
Discharge Summary Date of Admission: 01/26/20 13:52 Admitting Physician: ROBERT FUNK Primary Care Provider: ALEC REINA Allergies Allergies No Known Drug Allergies Allergy (Verified 01/22/20 14:43) Hospital Summary - Hospital Course Hospital Course: is a 89 year old male pt of Dr. Reina with hyperlipdemia, peipheral neuropathy, DM II, esophageal spasms, spastic colon, and CAD (with hx stents) who was admitted through ER with hip fracture. He was fixing a mower and was putting torque on a bar and it slipped, throwing him to the floor (landed on his buttocks). He had a lot of pain with weight bearing and it took 3 people to get him in the car. The initial XR was negative for fracutre, but the CT initial read was minimallly displaced fracture of the greater trochanter. Remy Draper NP, saw the pt and discussed with Dr. Nielson, who wanted an MRI ordered. MRI showed that the fracture was not complete so should be non surgical. Initially pt had some IV pain medication but is currently doing well on 1 percocet/day. He is starting PT with weight to toe touch for several weeks per Dr. Nielson. Has been tolerating po well. Staying in swing bed for PT. - Vitals & Intake/Output Vital Signs: Vital Signs Temperature 98.9 F 01/26/20 12:00 Pulse Rate 81 01/26/20 12:00 Respiratory Rate 14 01/26/20 12:00 Blood Pressure 132/62 01/26/20 12:00 O2 Sat by Pulse Oximetry 93 L 01/26/20 12:00 Intake & Output: Intake & Output 01/24/20 01/25/20 01/26/20 01/27/20 11:59 11:59 11:59 11:59 Intake Total 2265 1640 1090 240 Output Total 2150 3700 2550 300 Balance 115 -2060 -1460 -60 Weight 70.1 kg 68.5 kg 69.3 kg - Lab Result Diagrams: 01/23/20 07:13 01/23/20 04:30 Lab Results-Last 24 Hrs: Accuchecks Date 01/26/20 Time 07:30 Accucheck Value: 100 Micro Results-Entire Visit: Accuchecks Date 01/26/20 Time 07:30 Accucheck Value: 100 - Procedures and Test Procedures and Tests throughout Hospitalization: Therapy Orders & Screens 01/23/20 02:31 Oxygen Nasal Cannula 2 lpm Comment: Diagnosis: Fx Left Greater Trochanter 01/23/20 17:58 PT Eval & Treat ( Order) ROUTINE Reason for Eval:: hip fx, non surgical per Dr. Nielson Diagnosis: Fx Left Greater Trochanter Discharge Exam General Appearance: no apparent distress, alert, other (jovial) Neurologic Exam: oriented x 3, cooperative Eye Exam: eyes nml inspection Ears, Nose, Throat Exam: moist mucous membranes Respiratory Exam: normal breath sounds, lungs clear, No crackles/rales, No rhonchi, No wheezing Cardiovascular Exam: regular rate/rhythm, normal heart sounds, No murmur Gastrointestinal/Abdomen Exam: soft, normal bowel sounds, No tenderness, No distention, No mass, No guarding, No rebound Extremity Exam: normal inspection, other, No pedal edema, No swelling Skin Exam: normal color, warm, dry, No rash Final Diagnosis/Problem List - Final Discharge Diagnosis/Problem (1) Fracture of greater trochanter of left femur Status: Acute Code(s): S72.112A - DISP FX OF GREATER TROCHANTER OF LEFT FEMUR, INIT (2) Diabetes mellitus Status: Chronic Code(s): E11.9 - TYPE 2 DIABETES MELLITUS WITHOUT COMPLICATIONS (3) Esophageal spasm Status: Chronic Code(s): K22.4 - DYSKINESIA OF ESOPHAGUS (4) Peripheral neuropathy Status: Chronic Code(s): G62.9 - POLYNEUROPATHY, UNSPECIFIED - Discharge Disposition: Swing Bed @ [facility] Condition: Stable Prescriptions: No Action Clopidogrel Bisulfate 75 mg [PLAVIX 75 MG Tablet] 75 mg PO DAILY Hydrocodone Bit/Acetaminophen [[place] 10-325 Tablet] 1 tab PO Q6H PRN PRN PRN Reason: Pain Aspirin EC 81 mg [Ecotrin 81 mg] 81 mg PO QAM Pravastatin Sodium 20 mg PO HS Gabapentin [Neurontin] 600 mg PO QID Glimepiride 1 mg PO DAILY lisinopriL [Zestril] 2.5 mg PO DAILY Polyethylene Glycol 3350 17 gm [Miralax Powder 17GM PACKET] 17 gm PO QHS Follow up with: ALEC REINA MD [Primary Care Provider] - 1 Week
== END 2020-01-26 13:52 | disposition swing bed (61) ==
LOC: ED 14:01 → MED SURG 19:45 → INTOOBSV 01-26 13:52 → UNDODISIN 01-26 13:52 → OBSVTOIN 01-26 13:52
PROVIDERS: ADMIT Family Medicine; ATTEND Family Medicine
DX: S72.112A Displaced fracture of greater trochanter of left femur, initial encounter for closed fracture (principal); E78.5 Hyperlipidemia, unspecified; I25.10 Atherosclerotic heart disease of native coronary artery without angina pectoris; G62.9 Polyneuropathy, unspecified; K22.4 Dyskinesia of esophagus; E11.9 Type 2 diabetes mellitus without complications; E78.00 Pure hypercholesterolemia, unspecified; W19.XXXA Unspecified fall, initial encounter; Y93.H9 Activity, other involving exterior property and land maintenance, building and construction; Z79.01 Long term (current) use of anticoagulants; Z79.899 Other long term (current) drug therapy
CPT/HCPCS: 36415; 71045; 72192; 73502; 73721; 80053; 81001; 82962; 83036; 85025; 94760; 96374; 97110; 97161; 97530; 99285; G0378; J1170; J1650; A9270-GY

== ENCOUNTER 2020-01-26 13:52 | Inpatient (IN) | payer MEDICARE ==
[2020-01-26] MEDS ORDERED: Aplisol ID ONE (14:18)
[2020-01-26] MEDS ORDERED: PERCOCET TABLET 5/325MG PO PRN (14:18)
[2020-01-26] MEDS ORDERED: CITROMA 296 ML PO PRN (14:18)
[2020-01-26] MEDS: NEURONTIN 300 MG PO SCH ×2 (16:56→22:08)
[2020-01-26] MEDS: Colace 100 MG PO SCH (22:08)
[2020-01-26] MEDS: ENOXAPARIN SODIUM SQ SCH (22:08)
[2020-01-26] MEDS: Miralax Powder 17GM PACKET PO SCH (22:08)
[2020-01-26] MEDS: ZOCOR 20MG PO SCH (22:08)
[2020-01-27] MEDS: Amaryl 2 MG PO SCH (08:04)
[2020-01-27] MEDS: NEURONTIN 300 MG PO SCH ×4 (09:34→22:06)
[2020-01-27] MEDS: ECOTRIN 81 MG PO SCH (09:34)
[2020-01-27] MEDS: Colace 100 MG PO SCH ×2 (09:34→22:06)
[2020-01-27] MEDS: PLAVIX 75 MG Tablet PO SCH (09:34)
[2020-01-27] MEDS ORDERED: Aplisol ID SCH (10:00)
[2020-01-27] MEDS: Miralax Powder 17GM PACKET PO SCH (22:05)
[2020-01-27] MEDS: ZOCOR 20MG PO SCH (22:06)
[2020-01-27] MEDS: ENOXAPARIN SODIUM SQ SCH (22:07)
[2020-01-28] MEDS: Amaryl 2 MG PO SCH (08:28)
[2020-01-28] MEDS: PLAVIX 75 MG Tablet PO SCH (09:34)
[2020-01-28] MEDS: Colace 100 MG PO SCH ×2 (09:34→21:46)
[2020-01-28] MEDS: ECOTRIN 81 MG PO SCH (09:34)
[2020-01-28] MEDS: NEURONTIN 300 MG PO SCH ×4 (09:34→21:46)
[2020-01-28] MEDS ORDERED: HUMALOG SQ PRN (12:56)
[2020-01-28] MEDS ORDERED: NORCO 5/325 MG PO PRN (21:39)
[2020-01-28] MEDS: ZOCOR 20MG PO SCH (21:46)
[2020-01-28] MEDS: TYLENOL 325 MG PO PRN (21:46)
[2020-01-28] MEDS: ENOXAPARIN SODIUM SQ SCH (21:47)
[2020-01-28] MEDS: Miralax Powder 17GM PACKET PO SCH (22:36)
[2020-01-29] MEDS: Amaryl 2 MG PO SCH (07:37)
[2020-01-29] MEDS: Colace 100 MG PO SCH ×2 (09:49→21:18)
[2020-01-29] MEDS: NEURONTIN 300 MG PO SCH ×4 (09:49→21:17)
[2020-01-29] MEDS: ECOTRIN 81 MG PO SCH (09:49)
[2020-01-29] MEDS: PLAVIX 75 MG Tablet PO SCH (09:49)
[2020-01-29] MEDS: Miralax Powder 17GM PACKET PO SCH (21:17)
[2020-01-29] MEDS: ENOXAPARIN SODIUM SQ SCH (21:18)
[2020-01-29] MEDS: ZOCOR 20MG PO SCH (21:18)
[2020-01-30] MEDS: Amaryl 2 MG PO SCH (07:58)
[2020-01-30] MEDS: PLAVIX 75 MG Tablet PO SCH (09:50)
[2020-01-30] MEDS: NEURONTIN 300 MG PO SCH ×4 (09:50→21:47)
[2020-01-30] MEDS: Colace 100 MG PO SCH ×2 (09:50→21:48)
[2020-01-30] MEDS: ECOTRIN 81 MG PO SCH (09:50)
[2020-01-30] MEDS: ENOXAPARIN SODIUM SQ SCH (21:47)
[2020-01-30] MEDS: TYLENOL 325 MG PO PRN (21:47)
[2020-01-30] MEDS: Miralax Powder 17GM PACKET PO SCH (21:48)
[2020-01-30] MEDS: ZOCOR 20MG PO SCH (21:49)
[2020-01-31] MEDS: TYLENOL 325 MG PO PRN ×3 (08:37→21:55)
[2020-01-31] MEDS: Amaryl 2 MG PO SCH (08:39)
[2020-01-31] MEDS: ECOTRIN 81 MG PO SCH (11:57)
[2020-01-31] MEDS: NEURONTIN 300 MG PO SCH ×4 (11:57→21:54)
[2020-01-31] MEDS: PLAVIX 75 MG Tablet PO SCH (11:58)
[2020-01-31] MEDS: Colace 100 MG PO SCH ×2 (13:20→21:54)
[2020-01-31] MEDS: ZOCOR 20MG PO SCH (21:54)
[2020-01-31] MEDS: ENOXAPARIN SODIUM SQ SCH (21:54)
[2020-01-31] MEDS: Miralax Powder 17GM PACKET PO SCH (22:03)
[2020-02-01] MEDS: Amaryl 2 MG PO SCH (08:11)
[2020-02-01] MEDS: PLAVIX 75 MG Tablet PO SCH (09:35)
[2020-02-01] MEDS: Colace 100 MG PO SCH ×3 (09:35→21:32)
[2020-02-01] MEDS: ECOTRIN 81 MG PO SCH (09:35)
[2020-02-01] MEDS: NEURONTIN 300 MG PO SCH ×4 (09:36→21:28)
[2020-02-01] MEDS: TYLENOL 325 MG PO PRN (16:46)
--- NOTE | 2020-02-01 19:58 | PCM.NOTE ---
Date and Time: 02/01/201957 Subjective Assessment: Patient was seen and examined today. He reports he is doing well. He has been doing his physical therapy and denies any difficulty. Patient reports that he has had a good appetite. He denies any concerns at this time. He reports his follow up with his ortho doc is on wed. - Review of Systems Constitutional: No Symptoms Eyes: No Symptoms Ears, Nose, & Throat: No Symptoms Respiratory: No Symptoms Cardiac: No Symptoms Abdominal/Gastrointestinal: No Symptoms Genitourinary Symptoms: No Symptoms Musculoskeletal: Other (Recent left hip fx) Neurological: No Symptoms Psychological: No Symptoms Hematologic/Lymphatic: No Symptoms Objective Exam General Appearance: no apparent distress, other (Patient is sitting up in bed NAD) Neurologic Exam: alert, oriented x 3, cooperative, normal mood/affect, No confusion Skin Exam: normal color, warm, dry, No rash Eye Exam: eyes nml inspection, No scleral icterus, No pale conjunctivae Ears, Nose, Throat Exam: moist mucous membranes Neck Exam: normal inspection Respiratory Exam: normal breath sounds, lungs clear, No chest tenderness, No respiratory distress, No diminished breath sounds, No wheezing Cardiovascular Exam: regular rate/rhythm, normal heart sounds, No murmur, No friction rub, No gallop, No edema Gastrointestinal/Abdomen Exam: soft, normal bowel sounds, No tenderness, No distention Extremity Exam: normal inspection, other (L hip with slight decrease ROM. No pain with palpation) OBJECTIVE DATA Vital Signs: Vital Signs - 24 hr Temp Pulse Resp BP Pulse Ox 02/01/20 19:30 98.4 F 73 20 103/64 95 02/01/20 14:35 98.9 F 86 18 120/86 93 L 02/01/20 07:27 98.1 F 74 18 120/60 94 L 02/01/20 06:38 94 L 02/01/20 03:00 22 01/31/20 21:50 97.8 F 67 20 119/57 96 Pain Assessment - Last Documented Pain Intensity 2 Pain Scale Used 0-10 Pain Scale Intake and Output: Intake & Output 01/30/20 01/31/20 02/01/20 02/02/20 11:59 11:59 11:59 11:59 Intake Total 860 1510 840 600 Output Total 1350 2025 1275 375 Balance -184 -151 -236 225 Weight 69.1 kg Lab Results: Accuchecks Date 02/01/20 Time 07:15 Accucheck Value: 106 Multi-Disciplinary Progress Notes: Multi-Disciplinary Progress Notes 02/01/20 09:49 Case Management Note by Alem Becerra COMMUNICATION GIVEN TO DAUGHTER Initialized on 02/01/20 09:49 - END OF NOTE Assessment/Plan (1) Fracture of greater trochanter of left femur Current Visit: No Status: Acute Qualifiers: Encounter type: initial encounter Fracture type: closed Fracture alignment: nondisplaced Qualified Code(s): S72.115A - Nondisplaced fracture of greater trochanter of left femur, initial encounter for closed fracture Assessment & Plan: Patient is doing well with his PT. He has an appt in approx 1 week to see his ortho dr follow up. Patient will continue with PT and after he has completed his therapy he will likely be able to go home Code(s): S72.112A - DISP FX OF GREATER TROCHANTER OF LEFT FEMUR, INIT (2) Physical deconditioning Current Visit: No Status: Acute Assessment & Plan: Patient had recent fall which resulted in a non surgical hip fx. Patient has been doing well. He appears to be improving with his strength and ability to ambulate. He has follow up with ortho on wed Code(s): R53.81 - OTHER MALAISE (3) Diabetes mellitus Current Visit: No Status: Chronic Qualifiers: Diabetes mellitus type: type 2 Diabetes mellitus assisted insulin use: w [facility] assisted use Diabetes mellitus complication status: with neurologic complications Diabetes mellitus complication detail: with polyneuropathy Qualified Code(s): E11.42 - Type 2 diabetes mellitus with diabetic polyneuropathy Assessment & Plan: Will continue with routine DM meds. Patient is well controlled with a hga1c less the 6. Code(s): E11.9 - TYPE 2 DIABETES MELLITUS WITHOUT COMPLICATIONS (4) Peripheral neuropathy Current Visit: No Status: Chronic Qualifiers: Peripheral neuropathy type: polyneuropathy associated with underlying disease Qualified Code(s): G63 - Polyneuropathy in diseases classified elsewhere Assessment & Plan: Will continue with routine meds Code(s): G62.9 - POLYNEUROPATHY, UNSPECIFIED
[2020-02-01] MEDS: ZOCOR 20MG PO SCH (21:28)
[2020-02-01] MEDS: Miralax Powder 17GM PACKET PO SCH (21:28)
[2020-02-01] MEDS: ENOXAPARIN SODIUM SQ SCH (21:28)
[2020-02-02] MEDS: Amaryl 2 MG PO SCH (07:43)
[2020-02-02] MEDS: NEURONTIN 300 MG PO SCH ×4 (09:18→21:39)
[2020-02-02] MEDS: ECOTRIN 81 MG PO SCH (09:18)
[2020-02-02] MEDS: PLAVIX 75 MG Tablet PO SCH (09:18)
[2020-02-02] MEDS: Colace 100 MG PO SCH ×2 (09:18→21:38)
[2020-02-02] MEDS: Miralax Powder 17GM PACKET PO SCH (21:39)
[2020-02-02] MEDS: ZOCOR 20MG PO SCH (21:39)
[2020-02-02] MEDS: ENOXAPARIN SODIUM SQ SCH (21:40)
[2020-02-03] MEDS: Amaryl 2 MG PO SCH (08:10)
[2020-02-03] MEDS: PLAVIX 75 MG Tablet PO SCH (09:01)
[2020-02-03] MEDS: NEURONTIN 300 MG PO SCH ×4 (09:01→21:44)
[2020-02-03] MEDS: ECOTRIN 81 MG PO SCH (09:01)
[2020-02-03] MEDS: Colace 100 MG PO SCH ×2 (09:01→21:44)
[2020-02-03] MEDS: TYLENOL 325 MG PO PRN (10:34)
[2020-02-03] MEDS ORDERED: Lasix 40 MG/4 ML ONE (18:38)
[2020-02-03] MEDS: ZOCOR 20MG PO SCH (21:43)
[2020-02-03] MEDS: Miralax Powder 17GM PACKET PO SCH (21:44)
[2020-02-03] MEDS: ENOXAPARIN SODIUM SQ SCH (21:44)
[2020-02-04] MEDS: TYLENOL 325 MG PO PRN ×2 (08:09→14:28)
[2020-02-04] MEDS: Amaryl 2 MG PO SCH (08:10)
[2020-02-04] MEDS: NEURONTIN 300 MG PO SCH ×4 (08:11→22:38)
[2020-02-04] MEDS: Colace 100 MG PO SCH ×2 (08:12→22:37)
[2020-02-04] MEDS: PLAVIX 75 MG Tablet PO SCH (08:12)
[2020-02-04] MEDS: ECOTRIN 81 MG PO SCH (08:12)
[2020-02-04] MEDS: Miralax Powder 17GM PACKET PO SCH (22:37)
[2020-02-04] MEDS: ZOCOR 20MG PO SCH (22:38)
[2020-02-04] MEDS: ENOXAPARIN SODIUM SQ SCH (22:38)
[2020-02-05] MEDS: Amaryl 2 MG PO SCH (07:39)
[2020-02-05] MEDS: NEURONTIN 300 MG PO SCH ×4 (09:11→21:34)
[2020-02-05] MEDS: ECOTRIN 81 MG PO SCH (09:12)
[2020-02-05] MEDS: Colace 100 MG PO SCH ×2 (09:12→21:35)
[2020-02-05] MEDS: PLAVIX 75 MG Tablet PO SCH (09:12)
[2020-02-05] MEDS: TYLENOL 325 MG PO PRN (21:33)
[2020-02-05] MEDS: ZOCOR 20MG PO SCH (21:34)
[2020-02-05] MEDS: ENOXAPARIN SODIUM SQ SCH (21:34)
[2020-02-05] MEDS: Miralax Powder 17GM PACKET PO SCH (21:35)
[2020-02-06] MEDS: Amaryl 2 MG PO SCH (08:27)
[2020-02-06] MEDS: TYLENOL 325 MG PO PRN ×3 (08:28→21:18)
[2020-02-06] MEDS: NEURONTIN 300 MG PO SCH ×4 (08:32→21:18)
[2020-02-06] MEDS: ECOTRIN 81 MG PO SCH (08:32)
[2020-02-06] MEDS: PLAVIX 75 MG Tablet PO SCH (08:32)
[2020-02-06] MEDS: Colace 100 MG PO SCH ×2 (08:35→22:22)
[2020-02-06] MEDS: ENOXAPARIN SODIUM SQ SCH (21:18)
[2020-02-06] MEDS: ZOCOR 20MG PO SCH (21:18)
[2020-02-06] MEDS: Miralax Powder 17GM PACKET PO SCH (22:22)
[2020-02-07] MEDS: Amaryl 2 MG PO SCH (08:35)
[2020-02-07] MEDS: NEURONTIN 300 MG PO SCH ×4 (08:37→21:35)
[2020-02-07] MEDS: ECOTRIN 81 MG PO SCH (08:37)
[2020-02-07] MEDS: PLAVIX 75 MG Tablet PO SCH (08:37)
[2020-02-07] MEDS: Colace 100 MG PO SCH ×2 (08:40→21:57)
[2020-02-07] MEDS: TYLENOL 325 MG PO PRN ×4 (08:42→21:34)
[2020-02-07] MEDS ORDERED: Aplisol ID SCH (10:00)
[2020-02-07] MEDS: ZOCOR 20MG PO SCH (21:35)
[2020-02-07] MEDS: Miralax Powder 17GM PACKET PO SCH (21:35)
[2020-02-07] MEDS: ENOXAPARIN SODIUM SQ SCH (21:36)
[2020-02-08] MEDS: TYLENOL 325 MG PO PRN ×3 (08:10→21:39)
[2020-02-08] MEDS: Amaryl 2 MG PO SCH (08:10)
[2020-02-08] MEDS: ECOTRIN 81 MG PO SCH (08:11)
[2020-02-08] MEDS: Colace 100 MG PO SCH ×2 (08:11→21:38)
[2020-02-08] MEDS: NEURONTIN 300 MG PO SCH ×4 (08:11→21:38)
[2020-02-08] MEDS: PLAVIX 75 MG Tablet PO SCH (08:11)
[2020-02-08] MEDS ORDERED: Aplisol ID ONE (10:00)
[2020-02-08] MEDS: ENOXAPARIN SODIUM SQ SCH (21:38)
[2020-02-08] MEDS: Miralax Powder 17GM PACKET PO SCH (21:38)
[2020-02-08] MEDS: ZOCOR 20MG PO SCH (21:38)
[2020-02-09 05:22] LABS: ANION GAP 9.8 MEQ/L (5-15); BLOOD UREA NITROGEN 17 mg/dL (9-20); CHLORIDE 106 mmol/L (98-107); Calcium 8.9 mg/dL (8.4-10.2); Carbon Dioxide 27 mmol/L (22-30); Creatinine 1 0.75 mg/dL (0.66-1.25); Glucose 105 mg/dL (74-106); Potassium 4.2 mmol/L (3.5-5.1); SODIUM 139 mmol/L (137-145)
[2020-02-09] MEDS: Amaryl 2 MG PO SCH (08:16)
[2020-02-09] MEDS: NEURONTIN 300 MG PO SCH ×2 (09:44→12:02)
[2020-02-09] MEDS: ECOTRIN 81 MG PO SCH (09:44)
[2020-02-09] MEDS: PLAVIX 75 MG Tablet PO SCH (09:44)
[2020-02-09] MEDS: Colace 100 MG PO SCH (09:44)
[2020-02-09 12:19] VITALS: BP 107/58; PULSE 74; O2SAT 94
== END 2020-02-09 15:45 | disposition home health service (06) | DRG 561 ==
LOC: MED SURG 13:52 → ICU 21:24 → MED SURG 01-31 12:25
PROVIDERS: ADMIT Family Medicine; ATTEND Family Medicine
DX: S72.112D Displaced fracture of greater trochanter of left femur, subsequent encounter for closed fracture with routine healing (principal); R53.81 Other malaise; E11.42 Type 2 diabetes mellitus with diabetic polyneuropathy; Z79.01 Long term (current) use of anticoagulants; Z79.899 Other long term (current) drug therapy
CPT/HCPCS: 36415; 80048; 82962; 94760; 94762; J1650; J1940; 97110-GP; A9270-GY